=== PATIENT | female | born 1945 | race Caucasian/White ===

== ENCOUNTER 2016-11-21 16:11 | Emergency (ER) | payer OTHER ==
[~2016-11-21] VITALS: Ht 165.1 cm; Wt 70.3 kg
[~2016-11-21 16:11] MED LIST: ASPI-524 PO; ATOR80TA63 PO; HYDR-3698 PO; IBUP-1480 PO; LISI-600 PO; METO-306 PO
[2016-11-21 16:31] VITALS: BP_SYST 155
[2016-11-21] MEDS ORDERED: KETOROLAC TROMETHAMINE 60 MG/2 ML VIAL IM ONE (17:15)
[2016-11-21 17:29] VITALS: BP_SYST 147
== END 2016-11-21 17:29 | disposition home or self-care (01) ==
LOC: SED 16:11
DX: M54.17 Radiculopathy, lumbosacral region (principal); G89.29 Other chronic pain; I25.2 Old myocardial infarction; I10 Essential (primary) hypertension
CPT/HCPCS: 96372; 99283; J1885

== ENCOUNTER 2016-11-27 00:03 | Emergency (ER) | payer OTHER ==
[~2016-11-27] VITALS: Ht 165.1 cm; Wt 70.3 kg
[2016-11-27 00:33] VITALS: BP_SYST 136
[2016-11-27] MEDS ORDERED: LEVO25TA7 PO (00:38)
--- NOTE | 2016-11-27 01:00 | NUR ---
Patient to ER bed 2 for evaluation. Side rails up.
--- NOTE | 2016-11-27 01:10 | NUR ---
Patient to ER C/O high BP and hips and right leg pain. Patient states that she has uncontrolled blood pressure for the past 1-2 years and today when she checked her BP was SBP in the 200's. In triage SBP 130's. Patient also C/O severe chronic bilateral hips pain and right leg pain 04/04. Patient states that she is seeing a pain management doctor who is now prescribing a new regiment which she has not yet started. AAOx4, unlabored breathing, VS WNL>
--- NOTE | 2016-11-27 01:24 | NUR ---
ER MD Workman at bedside for evaluation
[2016-11-27] MEDS ORDERED: DIPHENHYDRAMINE INJ 50 MG/ML VIAL IM ONE (01:45)
[2016-11-27] MEDS ORDERED: MORPHINE SULFATE 10 MG/ML VIAL IM ONE (01:45)
[2016-11-27 02:54] VITALS: BP_SYST 127
--- NOTE | 2016-11-27 02:54 | NUR ---
Patient given written and verbal discharge instructions and verbalizes understanding. ER MD Workman discussed with patient the results and treatment provided. Patient in stable condition. ID arm band removed. Patient educated on pain management and to follow up with PMD. Pain Scale 0/10. Opportunity for questions provided and answered.
== END 2016-11-27 02:54 | disposition home or self-care (01) ==
LOC: SED 00:03
DX: M54.40 Lumbago with sciatica, unspecified side (principal); M25.551 Pain in right hip; M25.552 Pain in left hip; I25.2 Old myocardial infarction; I10 Essential (primary) hypertension; Z79.82 Long term (current) use of aspirin
CPT/HCPCS: 96372; 99284; J1200; J2270

== ENCOUNTER 2016-12-02 19:46 | Emergency (ER) | payer OTHER ==
[~2016-12-02] VITALS: Ht 165.1 cm; Wt 70.3 kg
[2016-12-02 19:46] VITALS: BP_SYST 160
[~2016-12-02 19:46] MED LIST changes: -IBUP-1480 PO; +LEVO25TA7 PO
[2016-12-02] MEDS ORDERED: MORPHINE 2 MG/ML INJ. SYRINGE IM ONE (21:45)
[2016-12-02] MEDS ORDERED: DIPHENHYDRAMINE INJ 50 MG/ML VIAL IM ONE (21:45)
[2016-12-02 22:40] VITALS: BP_SYST 152
== END 2016-12-02 22:40 | disposition home or self-care (01) ==
LOC: SED 19:46
DX: M54.30 Sciatica, unspecified side (principal); I25.2 Old myocardial infarction; I10 Essential (primary) hypertension; Z79.82 Long term (current) use of aspirin
CPT/HCPCS: 96372; 99284; J1200; J2270

== ENCOUNTER 2016-12-03 01:21 | Emergency (ER) | payer OTHER ==
[~2016-12-03] VITALS: Ht 165.1 cm; Wt 70.3 kg
[~2016-12-03 01:21] MED LIST changes: +CLOP75TA2 PO; +IBUP-1480 PO
[2016-12-03 01:30] VITALS: BP 132/57; PULSE 64; RESP 16; TEMP 97.6; O2SAT 97
--- NOTE | 2016-12-03 01:35 | NUR ---
Placed in room 05 . Placed on lunchroom monitor, blood pressure machine and pulse oximeter. To gown for exam. Side rails up. Report given to LOIDA Lind.
--- NOTE | 2016-12-03 01:35 | NUR ---
Patient AAO x4, sitting in bed,c/o right sciatic pain 10/10. Patient was discharged earlier this evening and given a RX of tramadol. Patient states "the morphine wore off and I couldn't get to sleep." Patient states she did not take pain medications at home for leg pain. Patient able to ambulate from waiting room to ER bed without assistance, minor limping noted. Patient denies chest pain, denies N/V/D, denies dizziness. No acute distress noted. Will continue to monitor.
--- NOTE | 2016-12-03 02:11 | NUR ---
ER MD Lemus at bedside evaluating the patient
[2016-12-03] MEDS ORDERED: HYDROmorphone 2 MG/ML VIAL IM ONE (02:45)
[2016-12-03 02:56] VITALS: BP 124/66; PULSE 71; RESP 17; TEMP 97.9; O2SAT 98
--- NOTE | 2016-12-03 02:56 | NUR ---
Patient given written and verbal discharge instructions and verbalizes understanding. ER MD Lemus discussed with patient the results and treatment provided. Patient in stable condition. ID arm band removed. Patient educated on pain management and to follow up with PMD. Pain Scale 0/10. Opportunity for questions provided and answered.
== END 2016-12-03 02:56 | disposition home or self-care (01) ==
LOC: SED 01:21
DX: M54.40 Lumbago with sciatica, unspecified side (principal); I25.2 Old myocardial infarction; I10 Essential (primary) hypertension; Z79.82 Long term (current) use of aspirin
CPT/HCPCS: 96372; 99283; J1170

== ENCOUNTER 2018-05-31 22:25 | Emergency (ER) | payer OTHER ==
[~2018-05-31] VITALS: Ht 165.1 cm; Wt 77.1 kg
[~2018-05-31 22:25] MED LIST changes: +ATOR-1 PO; -ATOR80TA63 PO; -CLOP75TA2 PO; -IBUP-1480 PO; -METO-306 PO; +METO-542 PO
[2018-05-31 22:30] VITALS: BP_SYST 141
[2018-05-31] MEDS ORDERED: KETOROLAC TROMETHAMINE 60 MG/2 ML VIAL IM ONE (23:15)
[2018-06-01 00:25] VITALS: BP_SYST 132
== END 2018-06-01 00:25 | disposition home or self-care (01) ==
LOC: SED 22:25
DX: S13.4XXA Sprain of ligaments of cervical spine, initial encounter (principal); I25.2 Old myocardial infarction; I10 Essential (primary) hypertension; Z79.899 Other long term (current) drug therapy; X58.XXXA Exposure to other specified factors, initial encounter; Y93.89 Activity, other specified; Y92.89 Other specified places as the place of occurrence of the external cause; Y99.8 Other external cause status
CPT/HCPCS: 96372; 99283; J1885

== ENCOUNTER 2019-02-27 16:29 | Emergency (ER) | payer OTHER, MEDICAID ==
[~2019-02-27] VITALS: Ht 165.1 cm; Wt 80.3 kg
[2019-02-27 16:30] VITALS: BP_SYST 146
--- NOTE | 2019-02-27 16:30 | NUR ---
Patient triaged and placed in waiting room. VSS and patient appears in no acute distress at this time. Accompanied by SELF, awaiting available bed, and MD notified of need for MSE.
--- NOTE | 2019-02-27 20:00 | NUR ---
Patient to ER bed 2 for evaluation.
--- NOTE | 2019-02-27 20:05 | NUR ---
Patient to ER via triage for evaluation of left sided neck strain x 2 days, no trauma or injury reported. Patient is awake, alert and oriented in no acute distress, vital signs stable, respirations even and unlabored, skin warm and dry to touch, patient able to ambulate without difficulty to bed 2. No neuro deficits noted. Awaiting evaluation by ER MD, will continue to observe and assess.
--- NOTE | 2019-02-27 20:10 | NUR ---
FRANKY Farrell at bedside examining patient.
[2019-02-27] MEDS ORDERED: CYCLOBENZAPRINE HCL 10 MG TABLET (FLEXERIL) PO ONE (20:45)
[2019-02-27] MEDS ORDERED: KETOROLAC TROMETHAMINE 15 MG VIAL IM ONE (20:45)
[2019-02-27 21:00] VITALS: BP_SYST 132
--- NOTE | 2019-02-27 21:00 | NUR ---
Patient given written and verbal discharge instructions and verbalizes understanding. ER MD discussed with patient the results and treatment provided. Patient in stable condition. ID arm band removed. Rx of Flexeril, Naproxen given. Patient educated on pain management and to follow up with PMD. Pain Scale 0. Opportunity for questions provided and answered. Medication side effect fact sheet provided. Patient left ER in no acute distress, able to ambulate without difficulty with slow, stady gait. Patient able to move all extremities without difficulty, no deficits noted. No adverse reaction noted to medication.
== END 2019-02-27 21:00 | disposition home or self-care (01) ==
LOC: SED 16:29
DX: S16.1XXA Strain of muscle, fascia and tendon at neck level, initial encounter (principal); I25.2 Old myocardial infarction; I10 Essential (primary) hypertension; E03.9 Hypothyroidism, unspecified; Z79.899 Other long term (current) drug therapy; X58.XXXA Exposure to other specified factors, initial encounter; Y93.89 Activity, other specified; Y92.89 Other specified places as the place of occurrence of the external cause; Y99.8 Other external cause status
CPT/HCPCS: 96372; 99283; J1885

== ENCOUNTER 2019-04-21 08:56 | Emergency (ER) | payer OTHER, MEDICAID ==
[~2019-04-21] VITALS: Ht 165.1 cm; Wt 80.7 kg
[2019-04-21 09:01] VITALS: BP_SYST 140
[2019-04-21 10:15] VITALS: BP_SYST 140
== END 2019-04-21 10:15 | disposition home or self-care (01) ==
LOC: SED 08:56
DX: S61.101A Unspecified open wound of right thumb with damage to nail, initial encounter (principal); X58.XXXA Exposure to other specified factors, initial encounter; Y93.89 Activity, other specified; Y92.89 Other specified places as the place of occurrence of the external cause; Y99.8 Other external cause status
CPT/HCPCS: 99283; 99284

== ENCOUNTER 2019-09-21 09:34 | Emergency (ER) | payer OTHER, MEDICAID ==
[~2019-09-21] VITALS: Ht 165.1 cm; Wt 79.4 kg
[2019-09-21 09:45] VITALS: BP_SYST 149
--- NOTE | 2019-09-21 09:45 | NUR ---
Patient to ER bed 4 to gown for evaluation. Side rails up. Report given to LOIDA Dey.
--- NOTE | 2019-09-21 09:49 | NUR ---
Patient arrived in the ED c/o cough, congestion and bodyaches that started a week ago. Denied any fevers or chills. Denied any chest pain or shortness of breath. Patient is alert and oriented x4, respirations even and unlabored, speaking in full sentences and ambulating with a steady gait. VSS, pain level 0/10. Informed of the approximate wait time. Instructed to notify ED staff for any changes in condition or worsening of symptoms. Patient verbalized understanding.
--- NOTE | 2019-09-21 10:12 | NUR ---
ER Dr. Mcelroy at bedside examining patient.
--- NOTE | 2019-09-21 10:22 | NUR ---
X-ray tech at bedside as ordered by Dr. Mcelroy. Patient tolerated the procedure well.
--- NOTE | 2019-09-21 11:13 | NUR ---
Patient given written and verbal discharge instructions and verbalizes understanding. ER MD discussed with patient the results and treatment provided. Patient in stable condition. ID arm band removed. Rx of Zyrtec and Adelso Quintero given. Patient educated on pain management and to follow up with PMD. Pain Scale 0/10. Opportunity for questions provided and answered. Medication side effect fact sheet provided.
[2019-09-21 11:14] VITALS: BP_SYST 149
== END 2019-09-21 11:13 | disposition home or self-care (01) ==
LOC: SED 09:34
DX: J20.8 Acute bronchitis due to other specified organisms (principal); I10 Essential (primary) hypertension; E03.9 Hypothyroidism, unspecified; I25.2 Old myocardial infarction; Z79.899 Other long term (current) drug therapy
CPT/HCPCS: 71045; 99283

== ENCOUNTER 2021-03-26 14:59 | Emergency (ER) | payer OTHER, MEDICAID ==
[~2021-03-26] VITALS: Ht 162.6 cm; Wt 74.8 kg
[~2021-03-26 14:59] MED LIST changes: -LISI-600 PO; +LISI20TA30 PO
[2021-03-26 15:00] VITALS: BP_SYST 145
--- NOTE | 2021-03-26 15:00 | NUR ---
pt placed in bed 6, rec'd report from Iveth
--- NOTE | 2021-03-26 15:03 | NUR ---
Pt. bib family with c/o terrible pain behind left knee when ambulates or straightens out leg, while sitting at side of bed denies any pain. No acute trauma or injury to knee just started hurting 3 days ago and pt. recalls hearing a pop.
--- NOTE | 2021-03-26 15:05 | NUR ---
ER at bedside examining patient.
[2021-03-26] MEDS ORDERED: HYDROcodone/ACETAMIN 5-325 MG TAB (NORCO/ VICODIN) PO ONE (15:15)
[2021-03-26] MEDS ORDERED: KETOROLAC TROMETHAMINE 30 MG VIAL IM ONE (15:15)
--- NOTE | 2021-03-26 15:36 | NUR ---
Medicated for pain, lab at bedside for blood draw
--- NOTE | 2021-03-26 15:58 | NUR ---
xray at bedside
[2021-03-26 16:10] LABS: BASOPHILS # (AUTO) 0.1 K/uL (0.0-0.2); BASOPHILS % (AUTO) 0.7 % (0.0-2.0); EOSINOPHILS # (AUTO) 0.2 K/uL (0.0-0.4); EOSINOPHILS % (AUTO) 2.2 % (0.0-4.0); HEMATOCRIT 37.7 % (36-48); HEMOGLOBIN 13.1 g/dL (12.0-16.0); LYMPHOCYTES # (AUTO) 2.1 K/uL (1.0-5.5); LYMPHOCYTES % (AUTO) 29.2 % (20.5-51.5); MEAN CORPUSCULAR HEMOGLOBIN 33 pg (27-31); MEAN CORPUSCULAR HGB CONC 35 % (32-36); MEAN CORPUSCULAR VOLUME 96 fL (79.0-98.0); MONOCYTES # (AUTO) 0.5 K/uL (0.0-1.0); MONOCYTES % (AUTO) 7.5 % (1.7-9.3); NEUTROPHILS # (AUTO) 4.2 K/uL (1.8-7.7); NEUTROPHILS % (AUTO) 60.4 % (40.0-70.0); PLATELET COUNT (AUTO) 150 K/uL (130-430); RED BLOOD CELL COUNT(AUTO) 3.93 MIL/uL (4.2-6.2); RED CELL DISTRIBUTION WIDTH 12.6 % (9.0-15.0)
[2021-03-26 16:33] LABS: PROTHROMBIN TIME 10.3 SECS (9.5-12.5)
[2021-03-26 16:36] LABS: ANION GAP 10 (5-15); CALCIUM 9.2 mg/dL (8.4-11.0); CHLORIDE 103 mmol/L (98-107); CREATININE 0.79 mg/dL (0.55-1.30); GLUCOSE 122 mg/dL (70-99); POTASSIUM 4.4 mmol/L (3.5-5.1); SODIUM SERUM 138 mmol/L (136-145); UREA NITROGEN, BLOOD 16 mg/dL (8-21)
[2021-03-26 16:37] LABS: ALANINE AMINOTRANSFERASE 35 U/L (12-78); ALBUMIN 4.1 g/dL (3.4-4.8); ASPARTATE AMINOTRANSFERASE 25 U/L (10-37); TOTAL BILIRUBIN 0.8 mg/dL (0.0-1.0); URIC ACID 4.2 mg/dL (2.4-7.0)
[2021-03-26 16:38] LABS: C-REACTIVE PROTEIN QUANT < 0.2 mg/dL (0-0.5)
[2021-03-26] MEDS ORDERED: HYDR-3917 PO (17:01)
[2021-03-26] MEDS ORDERED: IBUP-1969 PO (17:01)
[2021-03-26 17:19] LABS: ERYTHROCYTE SEDIMENTATION RATE 14 MM/HR (0-20)
[2021-03-26 17:32] VITALS: BP_SYST 129
--- NOTE | 2021-03-26 17:33 | NUR ---
Patient given written and verbal discharge instructions and verbalizes understanding. ER Dr. Heredia discussed with patient the results and treatment provided. Patient in stable condition. ID arm band removed. Rx of Paradise and Ibuprofen given. Patient educated on pain management and to follow up with PMD. Pain Scale 3.Opportunity for questions provided and answered. Medication side effect fact sheet provided.
== END 2021-03-26 17:33 | disposition home or self-care (01) ==
LOC: SED 14:59
DX: M25.461 Effusion, right knee (principal); I10 Essential (primary) hypertension; I25.2 Old myocardial infarction; E03.9 Hypothyroidism, unspecified; Z79.899 Other long term (current) drug therapy
CPT/HCPCS: 36415; 73564; 80053; 84550; 85025; 85610; 85651; 85730; 86140; 96372; 99284; J1885

== ENCOUNTER → 2022-05-29 | Emergency (ER) | payer OTHER, MEDICAID ==
[~2022-05-29] VITALS: Ht 165.1 cm; Wt 81.6 kg
[~2022-05-29] MED LIST changes: +CYCL10TA24 PO; +HYDR-3917 PO; +IBUP-1969 PO; +KETOROLAC TROMETHAMINE 30 MG VIAL IM ONE; +LORazepam 1 MG TABLET PO ONE; +NAPR-686 PO
[2022-05-29 20:10] VITALS: BP_SYST 147
[2022-05-29 23:27] VITALS: BP_SYST 138
== END | disposition home or self-care (01) ==
LOC: SED 19:54
DX: M43.6 Torticollis (principal); M54.2 Cervicalgia; I10 Essential (primary) hypertension; Z79.899 Other long term (current) drug therapy
CPT/HCPCS: 99283; 93005; 72040; 96372; J1885

== ENCOUNTER 2024-03-31 21:19 | Emergency (ER) | payer OTHER ==
[~2024-03-31] VITALS: Ht 165.1 cm; Wt 80.3 kg
[~2024-03-31 21:19] MED LIST changes: -KETOROLAC TROMETHAMINE 30 MG VIAL IM ONE; -LORazepam 1 MG TABLET PO ONE; +METO-306 PO; -METO-542 PO
[2024-03-31 21:37] VITALS: BP_SYST 153; PULSE 63; RESP 17; TEMP 97.4; O2SAT 98
== END 2024-04-01 00:26 | disposition left against medical advice (07) ==
LOC: SED 21:19
DX: R03.0 Elevated blood-pressure reading, without diagnosis of hypertension (principal); Z53.21 Procedure and treatment not carried out due to patient leaving prior to being seen by health care provider